=== PATIENT | male | born 2000 | race Caucasian/White ===

== ENCOUNTER 2023-10-08 18:35 | Emergency (ER) | payer SELFPAY ==
[~2023-10-08] VITALS: Ht 180.3 cm; Wt 103.6 kg
[2023-10-08 18:41] VITALS: BP 122/80; TEMP 98.2
[2023-10-08] MEDS ORDERED: predniSONE 20 MG TAB PO ONE (20:30)
[2023-10-08] MEDS ORDERED: PREDNISONE20 MG PO (20:34)
[2023-10-08 21:50] VITALS: PULSE 85
== END 2023-10-08 21:50 | disposition home or self-care (01) ==
LOC: COL.ER 18:35
DX: M54.50 Low back pain, unspecified (principal); W20.8XXA Other cause of strike by thrown, projected or falling object, initial encounter; Y93.89 Activity, other specified; Y92.89 Other specified places as the place of occurrence of the external cause; Y99.0 Civilian activity done for income or pay
CPT/HCPCS: J7512